=== PATIENT | female | born 2000 | race Caucasian/White ===

== ENCOUNTER 2025-07-25 22:08 | Emergency (ER) | payer OTHER, SELFPAY ==
[2025-07-25 22:21] VITALS: BP 138/81
[2025-07-25 22:51] LABS: Hematocrit 40.5 % (37.0-47.0); Hemoglobin 14.8 g/dL (12.0-16.0); Mean Corp Hgb Conc. 36.5 g/dL (33.0-37.0); Mean Corpuscular Volume 88.4 fL (81.0-99.0); Nucleated Red Blood Cells % 0 %; Platelet Count 241 10^3/uL (130-400); Red Cell Dist. Width 11.5 % (11.5-14.5)
[2025-07-25 23:03] LABS: APTT 28.2 Sec (23.4-35.0)
[2025-07-25 23:05] LABS: HCG, Serum Qualitative Screen Negative
[2025-07-25 23:08] LABS: ALT (SGPT) 19 U/L (0-35); AST (SGOT) 24 U/L (14-36); Albumin 4.7 g/dl (3.5-5.0); Alkaline Phosphatase 94 U/L (38-126); Blood Urea Nitrogen 11 mg/dl (7-17); Calcium 9.5 mg/dl (8.4-10.2); Carbon Dioxide 26 mmol/L (22-30); Chloride 106 mmol/L (98-107); Glucose 101 mg/dl (70-99); Potassium 4.1 mmol/L (3.5-5.1); Sodium 138 mmol/L (135-145); Total Protein 7.3 g/dl (6.3-8.2); eGFR > 60.00
[2025-07-25 23:18] LABS: Troponin I < 0.012 ng/ml
== END 2025-07-26 01:11 ==
LOC: EMR 22:08
PROVIDERS: Emergency Medicine; FAMILY PHYSICIAN Family Medicine
DX: Z53.21 Procedure and treatment not carried out due to patient leaving prior to being seen by health care provider (principal)
CPT/HCPCS: 80053; 84484; 84703; 85025; 85730; 93005